=== PATIENT | female | born 1930 | race Caucasian/White ===

== ENCOUNTER 2016-07-23 14:06 | Outpatient (CLI) | payer MEDICARE, OTHER ==
[2016-07-23 14:35] LABS: MEAN CORPUSCULAR HEMOGLOBIN 31.3 pg (28.0-34.0)
[2016-07-23 15:05] LABS: eGFR (African) > 60; eGFR (Non-African) > 60
== END 2016-07-23 14:07 ==
LOC: LAB 14:06
PROVIDERS: ATTEND Internal Medicine Cardiovascular Disease
DX: I10 Essential (primary) hypertension (principal)
CPT/HCPCS: 36415; 80053; 85027; 87086

== ENCOUNTER 2017-03-01 12:28 | Outpatient (CLI) | payer MEDICARE, OTHER | END 2017-03-01 12:30 | LOC: LAB 12:28 | PROVIDERS: ATTEND Internal Medicine Cardiovascular Disease | DX: Z79.01 Long term (current) use of anticoagulants (principal) | CPT/HCPCS: 36415; 85610 ==